=== PATIENT | female | born 1995 | race Caucasian/White ===

== ENCOUNTER 2020-12-01 23:46 | Emergency (ER) | payer OTHER ==
[~2020-12-01 23:46] MED LIST: BUPRENORPHIN-N1 EACH SL; COLACE 100MG C100 MG PO; IBUPROFEN600 MG PO; PRENATAL VITAM1 EAC6 PO; SUBUTEX 8 MG TAB8 MG SL
== END 2020-12-02 00:03 | disposition left against medical advice (07) ==
LOC: ER1 23:46
DX: Z53.21 Procedure and treatment not carried out due to patient leaving prior to being seen by health care provider (principal)

== ENCOUNTER 2021-05-10 14:36 | Outpatient (CLI) | payer OTHER ==
[2021-05-10 15:30] LABS: HEMOGLOBIN 13.5 gm/dl (12.3-15.3); RED BLOOD COUNT 4.29 M/UL (4.00-5.10); WHITE BLOOD COUNT 11.9 K/UL (4.5-11.0)
== END 2021-05-10 15:27 | disposition home or self-care (01) ==
LOC: GENOP 14:36
PROVIDERS: Obstetrics & Gynecology
DX: Z01.812 Encounter for preprocedural laboratory examination (principal); O32.1XX0 Maternal care for breech presentation, not applicable or unspecified
CPT/HCPCS: 36415; 80307; 81001; 85025

== ENCOUNTER 2021-05-13 05:34 | Inpatient (IN) | payer OTHER ==
[~2021-05-13] VITALS: Ht 160 cm; Wt 83.0 kg
[2021-05-13] MEDS ORDERED: SUBOXONE 8 MG-1 EACH SL (06:23)
[2021-05-13] MEDS ORDERED: DOCUSATE SODIU100 MG PO (18:40)
[2021-05-13] MEDS ORDERED: IBUPROFEN600 MG PO (18:40)
[2021-05-14 06:25] LABS: HEMOGLOBIN 11.7 gm/dl (12.3-15.3)
== END 2021-05-15 11:28 | disposition home or self-care (01) | DRG 787 ==
LOC: OB 05:34
PROVIDERS: ADMIT Obstetrics & Gynecology
PROC: 4A1HXCZ Monitoring of Products of Conception, Cardiac Rate, External Approach (ICD-10-PCS; 2021-05-13)
PROC: 10D00Z1 Extraction of Products of Conception, Low, Open Approach (ICD-10-PCS; principal; 2021-05-13 07:30)
DX: O32.1XX0 Maternal care for breech presentation, not applicable or unspecified (principal); O99.324 Drug use complicating childbirth; F11.20 Opioid dependence, uncomplicated; Z20.822 Contact with and (suspected) exposure to COVID-19; Z3A.38 38 weeks gestation of pregnancy; Z37.0 Single live birth; O36.5930 Maternal care for other known or suspected poor fetal growth, third trimester, not applicable or unspecified; O32.0XX0 Maternal care for unstable lie, not applicable or unspecified; O99.344 Other mental disorders complicating childbirth; F32.A Depression, unspecified; F41.9 Anxiety disorder, unspecified; Z90.49 Acquired absence of other specified parts of digestive tract; O99.214 Obesity complicating childbirth; E66.9 Obesity, unspecified
CPT/HCPCS: 82800; 85014; 85018; 86850; 86900; 86901; 90471; C9113; J0690; J1170; J2370; J2590; J2704; J7120

== ENCOUNTER 2021-08-13 02:43 | Emergency (ER) | payer OTHER ==
[~2021-08-13 02:43] MED LIST changes: +DOCUSATE SODIU100 MG PO; +SUBOXONE 8 MG-1 EACH SL
[2021-08-13 09:07] LABS: RED BLOOD COUNT 4.58 M/UL (4.00-5.10); WHITE BLOOD COUNT 8.3 K/UL (4.5-11.0)
[2021-08-13 09:36] LABS: BUN/CREATININE RATIO 20 (0-10)
[2021-08-13] MEDS ORDERED: IBUPROFEN600 MG PO (10:15)
== END 2021-08-13 12:15 | disposition home or self-care (01) ==
LOC: ER1 02:43
PROVIDERS: Emergency Medicine
DX: M54.50 Low back pain, unspecified (principal); E04.1 Nontoxic single thyroid nodule; R10.9 Unspecified abdominal pain; F17.210 Nicotine dependence, cigarettes, uncomplicated; Z90.49 Acquired absence of other specified parts of digestive tract; W01.0XXA Fall on same level from slipping, tripping and stumbling without subsequent striking against object, initial encounter
CPT/HCPCS: 72125; 80053; 81001; 84702; 84703; 85025; 99284; Q9967